=== PATIENT | female | born 1965 | race Caucasian/White ===

== ENCOUNTER 2018-07-11 06:48 | Day surgery (SDC) | payer OTHER ==
[~2018-07-11 06:48] MED LIST: FLOVENT DISKU250 MCG IH; SINGULAIR10 MG PO; VENTOLIN HFA18 GM IH
== END 2018-07-11 15:25 | disposition home or self-care (01) ==
LOC: CIR.AMB 06:48
DX: D24.1 Benign neoplasm of right breast (principal)